=== PATIENT | female | born 1980 | race Caucasian/White ===

== ENCOUNTER 2023-09-28 07:06 | Emergency (ER) | payer OTHER, SELFPAY ==
[2023-09-28 07:08] VITALS: BP 124/69
--- NOTE | 2023-09-28 08:21 | ED.SKININJ ---
HPI-Injury
General
Chief Complaint: Skin Surface Trauma
Source: patient
Exam Limitations: none
Time Seen by Provider: 09/28/23 07:52
History of Present Illness-Injury
Initial Injury comments:
43-year-old female presents with laceration to right leg she sustained today. She removed a trash bag with piece of glass sticking out and the glass cut her leg. Last tetanus unknown. No other complaints at this time
Past History
Past History
ED Past Medical History: GERD and Other (Endometriosis)
ED Past Surgical History: and Gynecological (Laparoscopy for endometriosis)
Social History
Tobacco: Non-smoker
Alcohol: Occasional
Personal:
Family History
Family History: CAD and Unable to obtain
Phy Exam
Physical Exam
Physical Exam:
General: Well-appearing female no acute respiratory distress
Skin: 3 cm flap type laceration right anterior proximal rasmussen with skin and subcutaneous tissue involved.
Neurologic: Good sensation right leg
Musculoskeletal exam: Good range of motion right knee and ankle
Course
Orders/Labs/Results
Orders:
Orders
09/28/23 08:21
Tetanus/Diphth/Acelpertussis [Adacel] 0.5 ml IM .ONCE ONE
Vital Signs
Initial and Last Documented VS:
Initial Vital Signs
Temp Pulse Resp BP Pulse Ox
97.8 F 79 16 124/69 98
09/28/23 07:08 09/28/23 07:08 09/28/23 07:08 09/28/23 07:08 09/28/23 07:08
Last Documented Vital Signs
Temp Pulse Resp BP Pulse Ox
97.8 F 79 16 124/69 98
09/28/23 07:08 09/28/23 07:08 09/28/23 07:08 09/28/23 07:08 09/28/23 07:08
MDM/Problems Addressed
Differential Diagnosis Includes:
Laceration right leg no evidence of tendon involvement. The wound was thoroughly inspected under adequate lighting. There was no retained foreign body. The wound was irrigated copiously with saline and 1% lidocaine and closed in a layered fashion
using 4 oh and subcutaneous tissue and 5-0 Prolene for the skin. A total of 10 sutures were required. Tetanus vaccine updated. A dressing was applied stable for discharge
*Critical Care Note
Total Time (30-74mins, 75-104mins- exclusive of procedures): Not Applicable
ED Attending Note
-
Portions of this chart may have been created with voice recognition software.� Occasional wrong word or��sound alike� substitutions may have occurred due to the inherent limitations of voice recognition software.
Discharge Plan
Departure
Patient Disposition: Home (Routine Discharge)
Date of Disposition: 09/28/23
Time of Disposition: 08:23
Patient with high blood pressure during this ER visit?: No
Discharge Problem:
Laceration
Instructions: Laceration Repair With Stitches (DC)
Prescriptions:
No Action
lansoprazole [Prevacid] 30 MG capsule,delayed release(DR/EC)
30 mg PO HS Qty: 30 0RF
Patient Comments:
pt states she hasn't taken for about a month bcz she doesn't think it works.
ketorolac 10 MG tablet
10 mg PO Q6HPRN PRN (Reason: pain) Qty: 14 0RF
Referrals:
Rusty Johansen DO [Family Provider] -
Activity Restrictions/Additional Instructions:
Keep clean. Pat dry if it gets wet. Have sutures removed in 10 to 14 days.
Interventions
Interventions:
*Risk Screen - Suicide Last Done: 09/28/23 07:45
*General Assessment Last Done: 09/28/23 07:45
*Neglect/Abuse Screening Last Done: 09/28/23 07:45
ED- Fall Risk Assessment Last Done: 09/28/23 07:45
*ED COVID-19 Vaccine History Last Done: 09/28/23 07:08
ED-Skin Assessment Last Done: 09/28/23 07:44
Discharge Date and Time
Print Language: SINHALA
[2023-09-28] MEDS: ADACEL 0.5 ML IM (08:35)
== END 2023-09-28 08:51 | disposition home or self-care (01) ==
LOC: EMR 07:06
PROVIDERS: EMERGENCY PHYSICIAN Emergency Medicine; FAMILY PHYSICIAN Family Medicine
DX: S81.811A Laceration without foreign body, right lower leg, initial encounter (principal); W25.XXXA Contact with sharp glass, initial encounter; Z23 Encounter for immunization; N80.9 Endometriosis, unspecified; K21.9 Gastro-esophageal reflux disease without esophagitis
CPT/HCPCS: 99282; 12001; 90471; 90715